=== PATIENT | male | born 1955 | race Caucasian/White ===

== ENCOUNTER 2018-02-12 15:48 | Emergency (ER) | payer MEDICARE, OTHER ==
[~2018-02-12] VITALS: Ht 167.6 cm; Wt 70.5 kg
[~2018-02-12 15:48] MED LIST: ADALAT CC30 MG PO; B-1100 MG PO; GABAPENTIN600 MG PO; KADIAN10 MG PO; KEPPRA 500MG500 MG PO; KLONOPIN 0.5MG0.5 MG PO; KLONOPIN1 MG PO; LAMICTAL 25MG T25 MG PO; LEVAQUIN 750MG750 M1 PO; LIORESAL 1010 MG/TAB PO; NEURONTIN300 MG/CAP PO; NEURONTIN600 MG/TAB PO; ONFI 10MG PO; PROCARDIA 10MG10 MG PO; RT SPIRIVA18 MCG IH; VICODIN 5/5001 UDTAB PO
[2018-02-12 15:50] VITALS: TEMP 96.8
[2018-02-12 16:05] LABS: BASO % 0.3 % (0.0-2.0); EOS # 0.1 (0.0-0.7); EOS % 1.2 % (0-4.0); GRAN # 5.1 (1.4-6.5); GRAN % 66.1 % (42.2-75.2); HEMATOCRIT 37.9 % (42.0-52.0); HEMOGLOBIN 12.2 g/dl (13.5-18.0); LYMPH # 1.7 (1.2-3.4); LYMPH % 22.1 % (20.0-51.0); MEAN CELL VOLUME 96 fl (80.0-100.0); MEAN CORPUSCULAR HEMOGLOBIN 31 pg (27.0-31.0); MEAN CORPUSCULAR HGB CONC 32 g/dl (33.0-37.0); MEAN PLATELET VOLUME 9.9 fl (7.4-10.4); MONO # 0.8 (0.1-0.6); MONO % 9.9 % (1.7-9.3); PLATELET COUNT 229 K/mm3 (130-400); RED BLOOD COUNT 3.95 M/mm3 (4.20-5.60); REDCELL DISTRIBUTION WIDTH-CV 13.7 % (11.5-14.5)
[2018-02-12 16:13] LABS: PROTHROMBIN TIME 11.4 SECONDS (9.7-12.8)
[2018-02-12 16:15] LABS: ALANINE AMINOTRANSFERASE 48 U/L (21-72); ALBUMIN 3.9 gm/dL (3.5-5.0); ALKALINE PHOSPHATASE 108 U/L (50-136); ANION GAP 11 mmol/L (7-16); AST,SGOT 43 U/L (15-37); BILIRUBIN,TOTAL 0.5 mg/dL (0.0-1.0); BLOOD UREA NITROGEN 12 mg/dL (9-20); CALCIUM 9.1 mg/dL (8.4-10.2); CARBON DIOXIDE 28 mmol/L (22-30); CHLORIDE 106 mmol/L (98-107); CREATININE, serum 0.95 mg/dL (0.66-1.25); GLUCOSE 100 mg/dL (74-106); POTASSIUM 4.1 mmol/L (3.4-5.0); SODIUM 145 mmol/L (137-145); TOTAL PROTEIN 7.3 gm/dL (6.4-8.2)
[2018-02-12 16:16] LABS: ALCOHOL(ethanol),MEDICAL < 10 mg/dL
[2018-02-12 16:26] LABS: TROPONIN-I < 0.012 ng/mL (0.000-0.034)
[2018-02-12 16:31] LABS: PROLACTIN 16.7 ng/mL (3.7-17.9)
[2018-02-12] MEDS ORDERED: LAMICTAL200 MG PO (17:10)
[2018-02-12] MEDS ORDERED: ATIVAN 0.50.5 MG/TAB PO (17:19)
[2018-02-12 20:06] VITALS: BP 130/76; PULSE 66
== END 2018-02-12 20:10 | disposition short-term general hospital (02) ==
LOC: COL.ER 15:48
PROVIDERS: Emergency Medicine
DX: G40.801 Other epilepsy, not intractable, with status epilepticus (principal); G91.9 Hydrocephalus, unspecified; Z86.73 Personal history of transient ischemic attack (TIA), and cerebral infarction without residual deficits; Z98.890 Other specified postprocedural states; Z91.19 Patient's noncompliance with other medical treatment and regimen; Z98.2 Presence of cerebrospinal fluid drainage device; W18.30XA Fall on same level, unspecified, initial encounter
CPT/HCPCS: J1953; J7030

== ENCOUNTER 2018-04-04 17:00 | Emergency (ER) | payer MEDICARE, OTHER ==
[~2018-04-04] VITALS: Ht 175.3 cm; Wt 79.5 kg
[~2018-04-04 17:00] MED LIST changes: +ATIVAN 0.50.5 MG/TAB PO; +LAMICTAL200 MG PO
[2018-04-04 17:07] VITALS: TEMP 98.5
[2018-04-04 19:23] LABS: BASO % 0.5 % (0.0-2.0); EOS # 0.6 (0.0-0.7); EOS % 8.4 % (0-4.0); GRAN # 3.7 (1.4-6.5); GRAN % 55.8 % (42.2-75.2); HEMOGLOBIN 11.8 g/dl (13.5-18.0); LYMPH # 1.7 (1.2-3.4); LYMPH % 25.2 % (20.0-51.0); MEAN CELL VOLUME 96 fl (80.0-100.0); MEAN CORPUSCULAR HEMOGLOBIN 31 pg (27.0-31.0); MEAN CORPUSCULAR HGB CONC 32 g/dl (33.0-37.0); MEAN PLATELET VOLUME 9.5 fl (7.4-10.4); MONO # 0.6 (0.1-0.6); MONO % 9.5 % (1.7-9.3); PLATELET COUNT 305 K/mm3 (130-400); RED BLOOD COUNT 3.81 M/mm3 (4.20-5.60); REDCELL DISTRIBUTION WIDTH-CV 13.7 % (11.5-14.5)
[2018-04-04 19:24] LABS: HEMATOCRIT 36.4 % (42.0-52.0)
[2018-04-04 19:26] LABS: PARTIAL THROMBOPLASTIN TIME 49.3 SECONDS (26.0-37.0)
[2018-04-04 19:26] LABS: COLLECTION METHOD CATHETER
[2018-04-04 19:37] LABS: PH 6 (5-8); SQUAMOUS EPITHELIAL None Seen /hpf; URINE APPEARANCE Clear; URINE BACTERIA Rare /hpf; URINE BILIRUBIN Negative (NEGATIVE); URINE BLOOD 3+ (NEGATIVE); URINE COLOR Yellow; URINE GLUCOSE Negative (NEGATIVE); URINE KETONE Negative (NEGATIVE); URINE LEUKOCYTE ESTERASE Negative (NEGATIVE); URINE NITRATE Negative (NEGATIVE); URINE PROTEIN(semi-quant) Negative (NEGATIVE); URINE UROBILINOGEN Negative (NEGATIVE)
[2018-04-04 19:42] LABS: ALBUMIN 3.9 gm/dL (3.5-5.0); BILIRUBIN,TOTAL 0.4 mg/dL (0.0-1.0); C-REACTIVE PROTEIN 2.4 mg/dL (0.0-0.9); CALCIUM 9.4 mg/dL (8.4-10.2); CREATININE, serum 0.87 mg/dL (0.66-1.25); POTASSIUM 3.9 mmol/L (3.4-5.0); TOTAL PROTEIN 7.4 gm/dL (6.4-8.2)
[2018-04-04] MEDS ORDERED: CIPRO 500MG TA500 MG PO (20:06)
[2018-04-04] MEDS ORDERED: NEURONTIN400 MG/CAP (20:15)
[2018-04-04] MEDS ORDERED: FLOMAX 0.40.4 MG/CAP PO (20:16)
[2018-04-04 20:17] VITALS: BP 161/76; PULSE 75
== END 2018-04-04 20:17 | disposition home or self-care (01) ==
LOC: COL.ER 17:00
PROVIDERS: Emergency Medicine
DX: N39.0 Urinary tract infection, site not specified (principal); G40.909 Epilepsy, unspecified, not intractable, without status epilepticus

== ENCOUNTER 2018-12-22 13:27 | Observation (INO) | payer MEDICARE, OTHER ==
[~2018-12-22] VITALS: Ht 177.8 cm; Wt 87.5 kg
[~2018-12-22 13:27] MED LIST changes: +CIPRO 500MG TA500 MG PO; +FLOMAX 0.40.4 MG/CAP PO; +NEURONTIN400 MG/CAP PO
[2018-12-22 14:08] LABS: BASO % 0.2 % (0.0-2.0); EOS # 0.2 (0.0-0.7); GRAN # 7.8 (1.4-6.5); GRAN % 78.9 % (42.2-75.2); HEMOGLOBIN 12.9 g/dl (13.5-18.0); LYMPH # 1.1 (1.2-3.4); LYMPH % 11.3 % (20.0-51.0); MEAN CELL VOLUME 94 fl (80.0-100.0); MEAN CORPUSCULAR HEMOGLOBIN 30 pg (27.0-31.0); MEAN CORPUSCULAR HGB CONC 32 g/dl (33.0-37.0); MEAN PLATELET VOLUME 9.4 fl (7.4-10.4); MONO # 0.7 (0.1-0.6); MONO % 7.2 % (1.7-9.3); PLATELET COUNT 299 K/mm3 (130-400); RED BLOOD COUNT 4.25 M/mm3 (4.20-5.60); REDCELL DISTRIBUTION WIDTH-CV 13.3 % (11.5-14.5)
[2018-12-22 14:20] LABS: ALANINE AMINOTRANSFERASE 9 U/L (21-72); ALBUMIN 4.2 gm/dL (3.5-5.0); ALKALINE PHOSPHATASE 173 U/L (50-136); ANION GAP 10 mmol/L (7-16); AST,SGOT 19 U/L (15-37); BILIRUBIN,TOTAL 0.8 mg/dL (0.0-1.0); BLOOD UREA NITROGEN 12 mg/dL (9-20); C-REACTIVE PROTEIN 5.6 mg/dL (0.0-0.9); CALCIUM 9.7 mg/dL (8.4-10.2); CARBON DIOXIDE 29 mmol/L (22-30); CHLORIDE 100 mmol/L (98-107); CREATININE, serum 1.13 (0.66-1.25); GLUCOSE 114 mg/dL (74-106); POTASSIUM 4.7 mmol/L (3.4-5.0); SODIUM 139 mmol/L (137-145); TOTAL PROTEIN 8.4 gm/dL (6.4-8.2)
[2018-12-22 14:31] LABS: TROPONIN-I < 0.012 ng/mL (0.000-0.035)
--- NOTE | 2018-12-22 16:28 | NUR ---
This patient arrived to the room at this time. The patient is alert and oriented and the is at the bedside. The initial assessment is completed. The patient reported needing a 21mcg nicotine during previous hospitalizations for a 1PPD habit of smoking. No pain at this time. The patient had tylenol in the ED prior to arrival. Medication reviewed with the .
[2018-12-22] MEDS ORDERED: ONFI 10MG PO (16:33)
[2018-12-22 17:39] VITALS: BP 119/97; PULSE 82; TEMP 99.1
[2018-12-22 19:26] VITALS: BP 103/52; PULSE 82; TEMP 98.8
--- NOTE | 2018-12-22 20:40 | NUR ---
Shift assessment complete. Pt resting in bed, awake, a&o c some int forgetfullness, cooperative c cares. at bedside. Pt continued c/o pain to L chest/ribs, lito c deep breaths, pain rated "8/10" et PRN [place] admin per pt request. Pt denies other c/o. Incision noted to RLQ ABD from pain pump insertion; sutures/ steristrips intact, incision s s/s complication, pt has abd binder in place. INT patent. Pt denies further needs. Call light in reach, bed alarm on. Will continue to monitor.
[2018-12-22 23:27] VITALS: BP 132/49; PULSE 73; TEMP 98.4
[2018-12-23 03:56] VITALS: BP 111/51; PULSE 72; TEMP 98.1
[2018-12-23 07:17] LABS: BASO % 0.3 % (0.0-2.0); EOS # 0.2 (0.0-0.7); EOS % 3.3 % (0-4.0); GRAN # 3.5 (1.4-6.5); GRAN % 54.8 % (42.2-75.2); HEMOGLOBIN 11.1 g/dl (13.5-18.0); LYMPH # 1.8 (1.2-3.4); LYMPH % 27.8 % (20.0-51.0); MEAN CELL VOLUME 95 fl (80.0-100.0); MEAN CORPUSCULAR HEMOGLOBIN 30 pg (27.0-31.0); MEAN CORPUSCULAR HGB CONC 32 g/dl (33.0-37.0); MEAN PLATELET VOLUME 9.4 fl (7.4-10.4); MONO # 0.9 (0.1-0.6); MONO % 13.3 % (1.7-9.3); PLATELET COUNT 274 K/mm3 (130-400); RED BLOOD COUNT 3.67 M/mm3 (4.20-5.60); REDCELL DISTRIBUTION WIDTH-CV 13.4 % (11.5-14.5)
[2018-12-23 07:28] LABS: CREATININE, serum 1.03 (0.66-1.25); POTASSIUM 4.1 mmol/L (3.4-5.0)
[2018-12-23 07:32] LABS: HEMATOCRIT 34.7 % (42.0-52.0)
[2018-12-23 07:39] VITALS: BP 115/43; PULSE 76; TEMP 98
--- NOTE | 2018-12-23 07:50 | NUR ---
Pt doing well this morning. He stated that he has already had breakfast. Gave him fresh ice water at this time. Educated patient on the physician order for a urine specimen. Gave him a clean urinal and wipes and informed him to use his call light when he voids. No other needs, will continue to monitor.
--- NOTE | 2018-12-23 09:00 | NUR ---
Report given to Deuce RN
--- NOTE | 2018-12-23 09:45 | NUR ---
Initial visit; Patient thanked [employer] Police Officer for looking in on him and offering God's blessings.
--- NOTE | 2018-12-23 09:56 | NUR ---
PT TOLD RT THAT HE WAS WHEELCHAIR BOUND AND DID NOT WALK. O2 TURNED OFF FOR APPROX 10 MINUTES. SPO2 87% O2 BACK ON @ 2 LPM NC SPO2 93%
--- NOTE | 2018-12-23 12:20 | NUR ---
Patient has been resting in bed. Does have complaints of back and left sided pain from rib fx and back pain is chronic. PRN pain medication administered. Patient has felt nauseated and did have small amount of nausea. PRN zofran administered. Did look in on patient and he was resting with eyes closed. Respirations are even and nonlabored. Facial expression is relaxed. Call light and personal items are within reach.
[2018-12-23 12:48] VITALS: BP 117/51; PULSE 76; TEMP 98.3
--- NOTE | 2018-12-23 15:09 | NUR ---
SW met with patient about discharge planning. Patient lives at home with his and plans to return there upon discharge. Patient's PCP is Dr Dominguez and he obtains prescriptions from [facility]. Patient has a walker, wheelchair and cane at home for mobility. Patient does not use any home health services. Patient does have a DPOA. SW does not anticipate any discharge needs but will follow as needed.
[2018-12-23 16:49] VITALS: BP 113/51; PULSE 71; TEMP 98.4
--- NOTE | 2018-12-23 18:52 | NUR ---
Patient discharged home at 1750 accompanied by staff via wheelchair. Personal belongings taken to private vehicle by . Assisted in vehicle at front doors. Discharge instructions explained to with understanding.
== END 2018-12-23 17:50 | disposition home or self-care (01) ==
LOC: COL.ER 13:27 → MEDICAL 15:31
PROVIDERS: Physician Assistant; ADMIT Hospitalist
DX: R07.9 Chest pain, unspecified (principal); S22.32XA Fracture of one rib, left side, initial encounter for closed fracture; W19.XXXA Unspecified fall, initial encounter; J96.01 Acute respiratory failure with hypoxia; J90 Pleural effusion, not elsewhere classified; R50.9 Fever, unspecified; G89.29 Other chronic pain; M54.2 Cervicalgia; Z79.899 Other long term (current) drug therapy; R56.9 Unspecified convulsions; Z87.820 Personal history of traumatic brain injury; N40.0 Benign prostatic hyperplasia without lower urinary tract symptoms; F17.210 Nicotine dependence, cigarettes, uncomplicated; J98.11 Atelectasis; I07.1 Rheumatic tricuspid insufficiency; Z98.1 Arthrodesis status; Z98.890 Other specified postprocedural states
CPT/HCPCS: G0378; J1644; J1956; J2405; J7030; Q9967

== ENCOUNTER 2020-06-25 17:04 | Emergency (ER) | payer MEDICARE, OTHER ==
[~2020-06-25] VITALS: Ht 177.8 cm; Wt 75.0 kg
[2020-06-25 17:06] VITALS: TEMP 98
[2020-06-25 17:36] LABS: BASO % 0.2 % (0.0-2.0); EOS # 0.1 (0.0-0.7); EOS % 1.3 % (0-4.0); GRAN # 3.4 (1.4-6.5); GRAN % 65.1 % (42.2-75.2); LYMPH # 1.3 (1.2-3.4); LYMPH % 24.2 % (20.0-51.0); MEAN CELL VOLUME 95 fl (80.0-100.0); MEAN CORPUSCULAR HGB CONC 31 g/dl (33.0-37.0); MEAN PLATELET VOLUME 9.8 fl (7.4-10.4); MONO # 0.5 (0.1-0.6); MONO % 8.8 % (1.7-9.3); PLATELET COUNT 291 K/mm3 (130-400); RED BLOOD COUNT 3.14 M/mm3 (4.20-5.60); REDCELL DISTRIBUTION WIDTH-CV 15.6 % (11.5-14.5)
[2020-06-25 17:37] LABS: HEMATOCRIT 29.8 % (42.0-52.0); HEMOGLOBIN 9.1 g/dl (13.5-18.0); MEAN CORPUSCULAR HEMOGLOBIN 29 pg (27.0-31.0)
[2020-06-25 17:55] LABS: ALBUMIN 3.6 gm/dL (3.5-5.0); BILIRUBIN,TOTAL 0.4 mg/dL (0.0-1.0); CALCIUM 9.1 mg/dL (8.4-10.2); CREATININE, serum 1.82 (0.66-1.25)
[2020-06-25] MEDS ORDERED: NORCO 325 MG-51 TAB PO (19:06)
[2020-06-25] MEDS ORDERED: EFFER-K20 MEQ PO (19:14)
[2020-06-25] MEDS ORDERED: SEROQUEL 2525 MG/TAB PO (19:15)
[2020-06-25] MEDS ORDERED: PRINIVIL40 MG PO (19:20)
[2020-06-25 22:30] VITALS: BP 117/59; PULSE 86
== END 2020-06-25 22:55 | disposition home or self-care (01) ==
LOC: COL.ER 17:04
PROVIDERS: Physician Assistant
DX: U07.1 COVID-19 (principal); D64.9 Anemia, unspecified; M25.50 Pain in unspecified joint
CPT/HCPCS: J2060; J7030

== ENCOUNTER 2021-05-30 21:54 | Emergency (ER) | payer MEDICARE, OTHER ==
[~2021-05-30] VITALS: Ht 175.3 cm; Wt 84.1 kg
[~2021-05-30 21:54] MED LIST changes: +EFFER-K20 MEQ PO; +NORCO 325 MG-51 TAB PO; +PRINIVIL40 MG PO; +SEROQUEL 2525 MG/TAB PO
[2021-05-30 23:00] LABS: COLLECTION METHOD IN
[2021-05-30 23:13] LABS: BUDDING YEAST Present (NOT PRESENT); PH 5 (5-8); URINE APPEARANCE Turbid (CLEAR/HAZY); URINE BACTERIA None Seen (NONE SEEN); URINE BILIRUBIN Negative (NEGATIVE); URINE BLOOD 3+ (NEGATIVE); URINE COLOR Amber (YELLOW); URINE GLUCOSE Negative (NEGATIVE); URINE KETONE Negative (NEGATIVE); URINE LEUKOCYTE ESTERASE 3+ (NEGATIVE); URINE NITRATE Negative (NEGATIVE); URINE PROTEIN(semi-quant) 2+ (NEGATIVE); URINE RBC >50 /hpf (0-2); URINE UROBILINOGEN Negative (NEGATIVE)
[2021-05-30] MEDS ORDERED: LEVAQUIN 750MG750 M1 PO (23:25)
[2021-05-30 23:55] VITALS: BP 158/89; PULSE 109; TEMP 98.6
[2021-06-02] MEDS ORDERED: MACRODANTIN100 PO (11:30)
== END 2021-05-30 23:55 | disposition home or self-care (01) ==
LOC: COL.ER 21:54
PROVIDERS: Nurse Practitioner Primary Care
DX: N39.0 Urinary tract infection, site not specified (principal); G40.909 Epilepsy, unspecified, not intractable, without status epilepticus; F17.210 Nicotine dependence, cigarettes, uncomplicated; Z88.1 Allergy status to other antibiotic agents; Z88.2 Allergy status to sulfonamides; Z79.899 Other long term (current) drug therapy

== ENCOUNTER 2024-01-13 11:19 | Emergency (ER) | payer MEDICARE, OTHER ==
[~2024-01-13] VITALS: Ht 160 cm; Wt 72.7 kg
[~2024-01-13 11:19] MED LIST changes: +MACRODANTIN100 PO
[2024-01-13 11:31] VITALS: TEMP 98.1
[2024-01-13 13:00] VITALS: PULSE 69
== END 2024-01-13 13:00 | disposition home or self-care (01) ==
LOC: COL.ER 11:19
DX: S31.31XA Laceration without foreign body of scrotum and testes, initial encounter (principal); Z23 Encounter for immunization; W18.12XA Fall from or off toilet with subsequent striking against object, initial encounter

== ENCOUNTER 2024-03-03 21:08 | Emergency (ER) | payer MEDICARE, OTHER ==
[~2024-03-03] VITALS: Ht 175.3 cm; Wt 72.7 kg
[~2024-03-03 21:08] MED LIST changes: +ASPIRIN 81M81 MG/TA2 PO; +BACLOFEN; +CRESTOR 10MG10 MG PO; +HYDROMORPHONE; +MOTRIN 200200 MG/TAB PO; -NEURONTIN400 MG/CAP PO; +NORVASC 10MG10 MG PO; +PRENATAL TABLET PO; +ZOLOFT 100MG100 MG PO
[2024-03-03 21:12] VITALS: TEMP 98.7
[2024-03-03] MEDS ORDERED: NS 1,000 ML IV ONE (21:45)
[2024-03-03 21:56] LABS: BASO % 0.3 % (0.0-2.0); EOS # 0.5 K/mm3 (0.0-0.7); EOS % 7.8 % (0.0-4.0); GRAN # 3.5 K/mm3 (1.4-6.5); GRAN % 52.1 % (42.2-75.2); LYMPH # 2.1 K/mm3 (1.2-3.4); LYMPH % 31.2 % (20.0-51.0); MEAN CELL VOLUME 94 fl (80.0-100.0); MEAN CORPUSCULAR HEMOGLOBIN 28 pg (27-31); MEAN CORPUSCULAR HGB CONC 30 g/dl (33.0-37.0); MEAN PLATELET VOLUME 9.8 fl (7.4-10.4); MONO # 0.6 K/mm3 (0.1-0.6); MONO % 8.5 % (1.7-9.3); PLATELET COUNT 275 K/mm3 (130-400); REDCELL DISTRIBUTION WIDTH-CV 14.6 % (11.5-14.5)
[2024-03-03 22:07] LABS: ALBUMIN 3.4 g/dL (3.4-4.8); BILIRUBIN,TOTAL 0.2 mg/dL (0.2-1.2); C-REACTIVE PROTEIN 1.64 mg/dL (0.00-0.50); CALCIUM 9.7 mg/dL (8.4-10.2); CREATININE, serum 0.91 mg/dL (0.72-1.25); POTASSIUM 3.9 mEq/L (3.5-4.5); TOTAL PROTEIN 7.3 g/dl (6.2-8.1)
[2024-03-03 22:18] LABS: HEMATOCRIT 36.8 % (42.0-52.0)
[2024-03-03 22:19] LABS: RED BLOOD COUNT 3.93 M/mm3 (4.20-5.60)
[2024-03-03 23:43] LABS: COLLECTION METHOD CATHETER
[2024-03-03 23:51] LABS: PH 5.5 (5.0-8.5); URINE APPEARANCE CLOUDY (CLEAR/HAZY); URINE BLOOD 1+ (NEGATIVE); URINE COLOR YELLOW (YELLOW); URINE GLUCOSE NEGATIVE (NEGATIVE); URINE KETONE NEGATIVE (NEGATIVE); URINE NITRATE NEGATIVE (NEGATIVE); URINE PROTEIN(semi-quant) 1+ (NEGATIVE); URINE UROBILINOGEN 0.2 E.U/dL (0.2-1.0)
[2024-03-04 00:19] LABS: SQUAMOUS EPITHELIAL 0-2 /hpf (0-10); URINE BACTERIA OCCASIONAL /hpf (NONE SEEN); URINE RBC 0-2 /hpf (0-2); URINE WBC >50 /hpf (0-2)
[2024-03-04 03:10] VITALS: BP 118/50; PULSE 52
== END 2024-03-04 03:10 | disposition short-term general hospital (02) ==
LOC: COL.ER 21:08
PROVIDERS: Emergency Medicine
DX: N39.0 Urinary tract infection, site not specified (principal); R53.1 Weakness; F17.200 Nicotine dependence, unspecified, uncomplicated; Z88.2 Allergy status to sulfonamides; Z88.1 Allergy status to other antibiotic agents
CPT/HCPCS: J1956; J7030

== ENCOUNTER 2024-03-19 08:18 | Emergency (ER) | payer MEDICARE, OTHER ==
[~2024-03-19] VITALS: Wt 79.5 kg
[2024-03-19 08:22] VITALS: TEMP 97.6
[2024-03-19] MEDS ORDERED: LORazepam 2 MG/ML 1 ML VIAL IV ONE ×2 (08:24→15:00)
[2024-03-19] MEDS ORDERED: NS 1,000 ML IV ONE (08:45)
[2024-03-19 09:04] LABS: BASO % 0.3 % (0.0-2.0); EOS # 0.6 K/mm3 (0.0-0.7); EOS % 7.4 % (0.0-4.0); GRAN # 4.3 K/mm3 (1.4-6.5); GRAN % 58.4 % (42.2-75.2); HEMOGLOBIN 10.6 g/dl (13.5-18.0); LYMPH # 1.9 K/mm3 (1.2-3.4); LYMPH % 25.5 % (20.0-51.0); MEAN CELL VOLUME 94 fl (80.0-100.0); MEAN CORPUSCULAR HEMOGLOBIN 29 pg (27-31); MEAN CORPUSCULAR HGB CONC 30 g/dl (33.0-37.0); MEAN PLATELET VOLUME 9.7 fl (7.4-10.4); MONO # 0.6 K/mm3 (0.1-0.6); MONO % 8.1 % (1.7-9.3); PLATELET COUNT 301 K/mm3 (130-400); RED BLOOD COUNT 3.72 M/mm3 (4.20-5.60); REDCELL DISTRIBUTION WIDTH-CV 14.6 % (11.5-14.5)
[2024-03-19 09:05] LABS: HEMATOCRIT 35.1 % (42.0-52.0)
[2024-03-19 09:21] LABS: ALANINE AMINOTRANSFERASE 18 U/L (0-55); ALBUMIN 3.2 g/dL (3.4-4.8); ALKALINE PHOSPHATASE 99 U/L (40-150); ANION GAP 10 mmol/L (7-16); AST,SGOT 21 U/L (5-34); BLOOD UREA NITROGEN 14 mg/dL (8-26); CHLORIDE 114 mEq/L (98-107); CREATININE, serum 0.83 mg/dL (0.72-1.25); GLUCOSE 101 mg/dL (70-99); LIPASE 47 U/L (8-78); POTASSIUM 3.4 mEq/L (3.5-4.5); SODIUM 149 mEq/L (136-145)
[2024-03-19 09:58] LABS: TROPONIN-I < 0.010 ng/mL (0.00-0.033)
[2024-03-19 10:14] LABS: BILIRUBIN,TOTAL 0.2 mg/dL (0.2-1.2)
[2024-03-19] MEDS ORDERED: Iohexol 300 - 100 ML VIAL IV ONE (11:04)
[2024-03-19] MEDS ORDERED: NS 100 ML IV SCH (11:05)
[2024-03-19 13:33] LABS: COLLECTION METHOD CATHETER
[2024-03-19 13:39] LABS: PH 5.5 (5.0-8.5); URINE APPEARANCE CLOUDY (CLEAR/HAZY); URINE BLOOD 3+ (NEGATIVE); URINE COLOR YELLOW (YELLOW); URINE GLUCOSE NEGATIVE (NEGATIVE); URINE KETONE NEGATIVE (NEGATIVE); URINE NITRATE NEGATIVE (NEGATIVE); URINE PROTEIN(semi-quant) 2+ (NEGATIVE)
[2024-03-19 14:07] LABS: TRICYCLIC ANTIDEPRESS URINE NEGATIVE (NEGATIVE)
[2024-03-19 14:26] LABS: URINE BACTERIA OCCASIONAL /hpf (NONE SEEN); URINE CALCIUM OXALATE CRYSTAL PRESENT (NOT PRESENT); URINE RBC 20-50 /hpf (0-2); URINE WBC >50 /hpf (0-2)
[2024-03-19 14:27] LABS: BUDDING YEAST PRESENT (NOT PRESENT)
--- NOTE | 2024-03-19 15:00 | NUR ---
brick kiln worker met with patient's spouse, son, and [facility] Patient is currently at [facility] under a Medicare stay. will return today via facility wheelchair van. Currently, [employer] social media project manager at the [facility] is working to place patient in a long care facility under a [facility] contract. Worker provider Medicare.gov share options and spouse and son are supportive of any facility that can accept. Patient has previously stayed at one of the [facility] and they are okay if patient was able to return. ED physician met with the spouse, son, and Kandi and provided information on ED tests and recommended patient being seen at [facility]. Worker confirmed that [facility] once [facility] is back in their facility. Worker collaborated with ED nursing regarding the above information.
[2024-03-19 17:08] VITALS: BP 126/56; PULSE 73
== END 2024-03-19 17:54 | disposition home or self-care (01) ==
LOC: COL.ER 08:18
PROVIDERS: Family Medicine
DX: N39.0 Urinary tract infection, site not specified (principal); G40.909 Epilepsy, unspecified, not intractable, without status epilepticus; Z88.1 Allergy status to other antibiotic agents; Z88.2 Allergy status to sulfonamides
CPT/HCPCS: J0744; J2060; J7030; Q9967

== ENCOUNTER 2024-04-24 09:27 | Inpatient (IN) | payer MEDICARE, OTHER ==
[~2024-04-24] VITALS: Wt 72.6 kg
[2024-04-24 10:09] LABS: BASO % 0.4 % (0.0-2.0); EOS # 0.5 K/mm3 (0.0-0.7); EOS % 6.5 % (0.0-4.0); GRAN # 4.3 K/mm3 (1.4-6.5); GRAN % 59.2 % (42.2-75.2); HEMOGLOBIN 11.6 g/dl (13.5-18.0); LYMPH # 1.9 K/mm3 (1.2-3.4); LYMPH % 25.4 % (20.0-51.0); MEAN CELL VOLUME 91 fl (80.0-100.0); MEAN CORPUSCULAR HEMOGLOBIN 29 pg (27-31); MEAN CORPUSCULAR HGB CONC 32 g/dl (33.0-37.0); MEAN PLATELET VOLUME 9.6 fl (7.4-10.4); MONO # 0.6 K/mm3 (0.1-0.6); MONO % 8.2 % (1.7-9.3); PLATELET COUNT 345 K/mm3 (130-400); RED BLOOD COUNT 4.06 M/mm3 (4.20-5.60); REDCELL DISTRIBUTION WIDTH-CV 15.1 % (11.5-14.5)
[2024-04-24 10:12] LABS: ALANINE AMINOTRANSFERASE 17 U/L (0-55); ALBUMIN 3.2 g/dL (3.4-4.8); ALKALINE PHOSPHATASE 119 U/L (40-150); ANION GAP 12 mmol/L (7-16); AST,SGOT 23 U/L (5-34); BILIRUBIN,TOTAL 0.4 mg/dL (0.2-1.2); BLOOD UREA NITROGEN 12 mg/dL (8-26); CALCIUM 9.5 mg/dL (8.4-10.2); CHLORIDE 108 mEq/L (98-107); CREATININE, serum 0.83 mg/dL (0.72-1.25); GLUCOSE 89 mg/dL (70-99); HEMATOCRIT 36.8 % (42.0-52.0); POTASSIUM 4.1 mEq/L (3.5-4.5); SODIUM 144 mEq/L (136-145); TOTAL PROTEIN 7.2 g/dl (6.2-8.1)
[2024-04-24 10:21] LABS: TROPONIN-I < 0.010 ng/mL (0.00-0.033)
[2024-04-24 10:33] LABS: COLLECTION METHOD CATHETER
[2024-04-24 10:43] LABS: URINE APPEARANCE CLEAR (CLEAR/HAZY); URINE BLOOD TRACE (NEGATIVE); URINE COLOR YELLOW (YELLOW); URINE GLUCOSE NEGATIVE (NEGATIVE); URINE KETONE NEGATIVE (NEGATIVE); URINE NITRATE NEGATIVE (NEGATIVE); URINE PROTEIN(semi-quant) 1+ (NEGATIVE); URINE UROBILINOGEN 0.2 E.U/dL (0.2-1.0)
[2024-04-24] MEDS ORDERED: CIPRO 500MG TA500 MG PO (12:42)
[2024-04-24] MEDS ORDERED: NS 1,000 ML IV ONE (12:45)
--- NOTE | 2024-04-24 14:10 | NUR ---
cinder crew worker was consulted due to this patient living at home and the nurse expressed the asked if he does not get admitted to send him home via EMS due to her being out of town. SW asked about how patient was found down in the home. Patient was found by the watching the security cameras in the home. SW contacted [facility] to determine cost of transport. It would cost $955 for patient to be transported via EMS back to [place]. cinder crew worker met with patient whom expressed he feels comfortable being at home by himself. Patient stated his is out of town and would be back tomorrow. SW explained she had contacted EMS and they expressed it would be $955 for the transportation. Patient stated his son, "Chalo", would be at home and could pick him up because he did not want to pay that cost. SW explained she would need to verify that Chalo would be home if he were to go home. Patient stated it would be Tip because Chalo does not live here. SW contacted Camelia, patient's , whom confirmed she is about 5 hours away and would need to be transported by EMS. SW explained the cost, Camelia stated "that's fine." SW explained the patient was not wanting to pay that cost and asked if patient had any additional friends or family members that could transport him. Camelia expressed Tip has a motorcycle so patient could not be transported on that but she has some family friends she would call and see if they could help transport him. DAVID was notified by Camelia, Patient's , that patient's friend, Alexis, would come pick him up today and transport him home. Camelia was insistent that patient's son would be there at the home to monitor patient. DAVID requested Tip's phone number to confirm this. Tip P# [phone] SW contacted patient's son, Tip, whom explained he would "fucking" be there. SW explained they wanted to ensure his father would be able to be monitored at home. Tip stated that he would "fucking babysit" him. SW explained they wanted to ensure someone was there until his is able to return home. Tip stated he lives about a block away and would be monitoring the safety cameras. Tip expressed he would not be staying in the home but he would be there when the patient gets home and he would monitor via cameras but he has stuff to do at his home. Tip asked if patient had a UTI. DAVID expressed that is what the doctor had expressed to her and Tip stated that normally when he has a UTI he is monitored overnight and wanted to know if they informed the of this. DAVID explained they had not but she would request the doctor speak with her. DAVID explained she had also spoke with the patient and he stated he felt safe being home by himself and she explained she does this to get the patient's input. Tip expressed that they cannot take his word because he is going to say he is independent with everything and that he could ride his trike right now if he wanted to. Tip stated but we all know that is not true. DAVID met with patient's doctor, Dr. Martinez, to discuss this with him and requested he speak with the patient's before having a team meeting. Dr. Martinez contacted patient's whom expressed patient has been home alone since Sunday when she left and she would be back tomorrow morning. Dr. Martinez expressed patient's stated she knows that he needs 24/7 care and they have cameras in the home. Patient's informed Dr. Martinez that she did not feel he was taking his medications correctly while she was out of the home. Dr. Martinez spoke with Dr. Will, hospitalist, whom is going to admit patient for observation. DAVID contacted patient's , Camelia, and updated her that patient would be admitted for observation and asked when she would return tomorrow. Camelia stated she would return tomorrow around lunchtime. DAVID contacted Tip, patient's son, to notify him the patient will be admitted for observation so that he is not waiting for him to return home. Tip understood. DAVID was notified Alexis had arrived to the ER to bulk picker patient. DAVID met with Alexis and explained patient would be admitted for observation and that the ride was not needed at this time. Alexis understood and exited the ER.
[2024-04-24 14:13] LABS: LIPASE 88 U/L (8-78)
--- NOTE | 2024-04-24 15:42 | NUR ---
janitorial maintenance worker discussed this patient's case with [employer] and also notified [facility] police department of the situation. Patient is being admitted to the hospital and spouse is reportedly returning on 04/25/24.
--- NOTE | 2024-04-24 16:32 | NUR ---
Officer Danial called this social service agency director and advised that he was coming to the hospital to speak with the patient and possibly filing a report for neglect. Worker notified burning supervisor that police were coming to see patient. House will notify the nursing unit of the above information.
--- NOTE | 2024-04-24 16:56 | NUR ---
SW made APS report #[id number] due to a dependent adult left home alone, medication non-compliance due to self care difficulties, and unable to perform ADLS.
[2024-04-24 17:00] VITALS: BP_SYST 162
[2024-04-24 17:20] VITALS: BP 162/79; PULSE 73; TEMP 99
[2024-04-24] MEDS ORDERED: lamoTRIgine 100 MG TAB PO SCH (17:22)
[2024-04-24] MEDS ORDERED: Acetaminophen 325 MG TAB PO PRN (17:30)
[2024-04-24] MEDS ORDERED: LORazepam 2 MG/ML 1 ML VIAL IV PRN (17:30)
--- NOTE | 2024-04-24 17:53 | NUR ---
PATIENT ARRIVED TO MEDICAL FLOOR AT APPROX 1650. PATIENT IS ALERT, BUT NOT COMPLETELY ORIENTED. [facility] OFFICER ATTEMPTED TO INTERVIEW BUT TOLD THE OFFICER TO CALL HIS B/C "I'M NOT TELLING YOU SHIT." [facility] LEFT, AND THIS RN PROCEEDED WITH ADMISSION. PATIENT THINKS HE IS IN [place] FOR A BRIEF MOMENT. THIS RN REORIENTS PATIENT, BUT HE STILL IS UNSURE WHY HE IS HERE OR WHY HE CAN'T GO BACK HOME. PATIENT APPEARS TO BE WELL KEPT. SEE SKIN ISSUES ON ADMISSION ASSESSMENT. PATIENT DOES HAVE A CHRONIC PHILLIPS IN PLACE, WELL A NEUROSTIMULATOR IN HIS ABDOMINAL AREA D/T [place]. PATIENT DOES HAVE MIMIMAL MOVEMENT IN BLE. DENIES PAIN OR DISCOMFORT. PATIENT UNABLE TO REPORT WHEN HE LAST TOOK HIS MEDICATIONS, BUT KNOWS HE TAKES A MEDICATION FOR SEIZURES. THIS RN IMPLEMENTED BOTH SEIZURE AND FALL PRECAUTIONS.
[2024-04-24 19:50] VITALS: BP 115/55; PULSE 90; TEMP 98.3
--- NOTE | 2024-04-24 20:14 | NUR ---
PATIENT RESTING IN BED WATCHING TV. REPORTING DISCOMFORT IN HIS ABDOMEN. HE IS ALERT AND ORIENTED. STABLE ON ROOM AIR. CALL LIGHT WITHIN REACH. BED LOCKED AND IN LOW POSITION.
[2024-04-24 20:29] VITALS: BP 115/55; PULSE 90; TEMP 98.3
[2024-04-24] MEDS ORDERED: Sertraline 100 MG TAB PO SCH (21:00)
[2024-04-24] MEDS ORDERED: Heparin 5,000 UNITS/ML 1 ML VIAL SQ SCH (21:00)
[2024-04-24 21:26] VITALS: BP_SYST 115
[2024-04-24 23:48] VITALS: BP 111/58; PULSE 71; TEMP 98.4
[2024-04-25] VITALS (7 sets, daily range): BP systolic 104–165; BP diastolic 44–71; PULSE 68–71; TEMP 98–98.6
[2024-04-25 06:41] LABS: BASO % 0.1 % (0.0-2.0); EOS # 0.4 K/mm3 (0.0-0.7); EOS % 6.2 % (0.0-4.0); GRAN # 3.8 K/mm3 (1.4-6.5); GRAN % 55.9 % (42.2-75.2); HEMOGLOBIN 10.2 g/dl (13.5-18.0); LYMPH % 29.2 % (20.0-51.0); MEAN CELL VOLUME 91 fl (80.0-100.0); MEAN CORPUSCULAR HEMOGLOBIN 29 pg (27-31); MEAN CORPUSCULAR HGB CONC 32 g/dl (33.0-37.0); MEAN PLATELET VOLUME 9.6 fl (7.4-10.4); MONO # 0.6 K/mm3 (0.1-0.6); MONO % 8.5 % (1.7-9.3); PLATELET COUNT 297 K/mm3 (130-400); RED BLOOD COUNT 3.58 M/mm3 (4.20-5.60); REDCELL DISTRIBUTION WIDTH-CV 15.2 % (11.5-14.5)
[2024-04-25 06:42] LABS: HEMATOCRIT 32.4 % (42.0-52.0)
[2024-04-25 07:06] LABS: CALCIUM 8.9 mg/dL (8.4-10.2); CREATININE, serum 0.92 mg/dL (0.72-1.25)
[2024-04-25] MEDS ORDERED: Sertraline 50 MG TAB PO SCH (09:00)
[2024-04-25] MEDS ORDERED: REMERON 15M15 MG/TA1 PO (13:30)
[2024-04-25] MEDS ORDERED: ZYPREXA2.5 MG PO (13:30)
[2024-04-25] MEDS ORDERED: CRANBERRY500 M3 PO (13:31)
[2024-04-25] MEDS ORDERED: OLANZapine 5 MG TAB PO SCH (13:39)
[2024-04-25] MEDS ORDERED: LEVAQUIN 750MG750 M1 PO (13:59)
--- NOTE | 2024-04-25 15:27 | NUR ---
THIS RN PROVIDED PATIENT WITH DISCHARGE EDUCATION AND INSTRUCTIONS. AT BEDSIDE. ALL QUESTIONS ANSWERED. DENIES FURTHER NEEDS OR CONERNS AT THIS TIME.
--- NOTE | 2024-04-25 16:11 | NUR ---
[employer] Maintainer met with patient and his , Camelia at bedside. Camelia inquired about discharge as she stated she was told yesterday that he would only be here one night, which is why she had to farmer back from [place]. Patient lives in [place] with his and sees Dr. Sousa for primary care. Patient gets medications from [facility] and uses a wheelchair at home with a slide board. Patient needs assistance with transfers and all other ADLS. Patient also relies on his family for transportation as he cannot drive. Patient has [facility] and plans to return home with continued services. Camelia stated she is patient's DPOA-HC. SW faxed updates and discharge orders to [facility]. Discharge Plan: Home with and [facility]
--- NOTE | 2024-04-25 16:27 | NUR ---
PATIENT ESCORTED OFF UNIT VIA WHEELCHAIR BY THIS RN. HAS ALL BELONINGS.
--- NOTE | 2024-04-28 08:29 | NUR ---
DAVID received a call from APS worker Maribel who wanted clarifying information, for which DAVID provided. She reports that she will go out to family's house to discuss with them further.
== END 2024-04-25 15:50 | disposition home health service (06) | DRG 699 ==
LOC: COL.ER 09:27 → MEDICAL 14:20
PROVIDERS: Family Medicine; ADMIT Internal Medicine
DX: T83.518A Infection and inflammatory reaction due to other urinary catheter, initial encounter (principal); N39.0 Urinary tract infection, site not specified; Z87.820 Personal history of traumatic brain injury; G40.909 Epilepsy, unspecified, not intractable, without status epilepticus; Z98.1 Arthrodesis status; I10 Essential (primary) hypertension; E78.5 Hyperlipidemia, unspecified; G89.29 Other chronic pain; F17.210 Nicotine dependence, cigarettes, uncomplicated; N40.0 Benign prostatic hyperplasia without lower urinary tract symptoms; Z99.3 Dependence on wheelchair; Y83.8 Other surgical procedures as the cause of abnormal reaction of the patient, or of later complication, without mention of misadventure at the time of the procedure
CPT/HCPCS: J1644; J1956; J7030